=== PATIENT | female | born 1965 | race Two or more races ===

== ENCOUNTER 2016-09-09 01:56 | Emergency (ER) | payer MEDICAID ==
[~2016-09-09] VITALS: Ht 162.6 cm; Wt 108.9 kg
[2016-09-09 02:22] VITALS: BP 122/74
[2016-09-09 02:51] LABS: Urine Bilirubin Negative (Negative); Urine Color PINK (Yellow); Urine Glucose Normal (Normal); Urine Ketone Negative (Negative); Urine Mucus FEW (None Seen); Urine Nitrite Negative (Negative); Urine RBC 1675 /hpf (0 - 4); Urine Squamous Epithelial Cell MOD /hpf (<5)
[2016-09-09 02:52] LABS: Urine Blood 3+ /uL (Negative)
[2016-09-09] MEDS ORDERED: cefTRIAXone SOD 1,000 MG VL IM ONE (04:30)
== END 2016-09-09 05:16 | disposition home or self-care (01) ==
LOC: ER 01:59
DX: N39.0 Urinary tract infection, site not specified (principal)
CPT/HCPCS: 81001; 96372; 99283; J0696

== ENCOUNTER 2020-07-26 12:16 | Emergency (ER) | payer MEDICAID, OTHER ==
[~2020-07-26] VITALS: Ht 162.6 cm; Wt 108.9 kg
[2020-07-26 13:50] LABS: Basophils # (auto) 0 10 ^3/uL (0-0.2); Basophils % (auto) 0.6 % (0.0-2.0); Eosinophils # (auto) 0.1 10 ^3/uL (0-0.8); Eosinophils % (auto) 1.9 % (0.0-7.0); Hematocrit 39.5 % (36.0-46.0); Hemoglobin 13.3 g/dL (12.2-16.2); Lymphocytes # (auto) 1.3 10 ^3/uL (0.4-5.4); Lymphocytes % (auto) 17.3 % (10.0-50.0); Mean Corpuscular Hgb Conc. 33.7 g/dL (32.0-36.0); Mean Corpuscular Volume 83.1 fL (80.0-100.0); Monocytes # (auto) 0.5 10 ^3/uL (0-1.3); Monocytes % (auto) 6.1 % (0.0-12.0); Neutrophils # (auto) 5.7 10 ^3/uL (1.6-8.6); Neutrophils % (auto) 74.1 % (37.0-80.0); Red Blood Cells 4.75 10^6/uL (4.0-5.20); Red Cell Distribution Width 14.7 % (11.8-14.3); White Blood Cell 7.7 10^3/uL (4.4-10.8)
[2020-07-26 14:06] LABS: INR 1.02 (0.9-1.15); Partial Thromboplastin Time 25.9 sec (23.0-31.2)
[2020-07-26 14:07] LABS: Albumin 3.6 g/dL (3.4-5.0); Anion Gap 5 (5-15); Blood Urea Nitrogen 13 mg/dL (7-18); Calcium 8.5 mg/dL (8.5-10.1); Carbon Dioxide 26 mmol/L (21-32); Chloride 108 mmol/L (98-107); Glucose 108 mg/dL (74-106); Potassium 3.7 mmol/L (3.5-5.1); Sodium 139 mmol/L (136-145)
[2020-07-26 14:15] LABS: Alanine Aminotransferase 40 U/L (13-56); Alkaline Phosphatase 75 U/L (45-117); Aspartate Aminotransferase 27 U/L (15-37); BUN/Creatinine Ratio 15.9; GFR African American 93 mL/min; GFR Non-African American 77 mL/min; Total Protein 7.6 g/dL (6.4-8.2)
[2020-07-26] MEDS ORDERED: HYDROcodone-ACET 10/325MG TAB PO ONE (15:15)
[2020-07-26 16:33] VITALS: BP 142/77
== END 2020-07-26 17:36 | disposition home or self-care (01) ==
LOC: ER 12:16 → EDBD 12:16 → ER 17:36
DX: S83.92XA Sprain of unspecified site of left knee, initial encounter (principal); W01.0XXA Fall on same level from slipping, tripping and stumbling without subsequent striking against object, initial encounter; Y93.89 Activity, other specified; Y92.89 Other specified places as the place of occurrence of the external cause; Y99.8 Other external cause status
CPT/HCPCS: 36415; 71045; 72192; 73700; 80053; 84484; 85025; 85610; 85730; 93005

== ENCOUNTER 2023-11-30 00:45 | Emergency (ER) | payer OTHER ==
[~2023-11-30] VITALS: Ht 165.1 cm; Wt 104.4 kg
[2023-11-30] MEDS: ACETAMINOPHEN 325 MG TAB PO ONE (01:05)
[2023-11-30 01:28] LABS: Urine Bacteria FEW /hpf (None Seen); Urine Blood 1+ /uL (Negative); Urine Clarity Turbid (Clear); Urine Color Colorless (Yellow); Urine Protein, UAD TRACE (Negative); Urine Specific Gravity 1.011 (1.001-1.035); Urine Urobilinogen Normal (Negative); Urine WBC 595 /hpf (0 - 5); Urine WBC Clumps PRESENT /hpf (None Seen); Urine pH 6.5 (5.0-9.0)
[2023-11-30] MEDS: cefTRIAXone 2GM/50ML D5W 50 ML IV ONE (02:57)
[2023-11-30 03:06] LABS: Basophils # (auto) 0 10 ^3/uL (0-0.2); Basophils % (auto) 0.1 % (0.0-2.0); Eosinophils # (auto) 0 10 ^3/uL (0-0.8); Eosinophils % (auto) 0.1 % (0.0-7.0); Hematocrit 37.8 % (36.0-46.0); Hemoglobin 12.7 g/dL (12.2-16.2); Lymphocytes # (auto) 0.5 10 ^3/uL (0.4-5.4); Lymphocytes % (auto) 3.9 % (10.0-50.0); Mean Corpuscular Hemoglobin 27.9 pg (28.0-32.0); Mean Corpuscular Hgb Conc. 33.6 g/dL (32.0-36.0); Monocytes # (auto) 0.4 10 ^3/uL (0-1.3); Monocytes % (auto) 3.1 % (0.0-12.0); Neutrophils # (auto) 11.4 10 ^3/uL (1.6-8.6); Neutrophils % (auto) 92.8 % (37.0-80.0); Red Blood Cells 4.55 10^6/uL (4.0-5.20); Red Cell Distribution Width 15.1 % (11.8-14.3); White Blood Cell 12.3 10^3/uL (4.4-10.8)
[2023-11-30] MEDS: SODIUM CHLORIDE 0.9% 1,000 ML IV ONE (03:08)
[2023-11-30] MEDS: KETOROLAC TROMETH 30 MG/ML 1ML VIAL IV ONE (03:09)
[2023-11-30] MEDS: cefTRIAXone 1GM/50ML D5W 50 ML IV ONE ×2 (03:09→04:48)
[2023-11-30] MEDS: ONDANSETRON HCL 4 MG/2 ML VIAL IV ONE (03:09)
[2023-11-30 03:25] LABS: Alanine Aminotransferase 30 U/L (7-40); Albumin 4.3 g/dL (3.2-4.8); Alkaline Phosphatase 75 U/L (46-116); Anion Gap 10 (5-15); Aspartate Aminotransferase 21 U/L (13-40); BUN/Creatinine Ratio 13.9 (10.0-20.0); Blood Urea Nitrogen 11 mg/dL (9-23); Calcium 9.7 mg/dL (8.7-10.4); Carbon Dioxide 21 mmol/L (20-30); Chloride 107 mmol/L (98-107); Glucose 157 mg/dL (74-106); Potassium 3.1 mmol/L (3.5-5.1); Sodium 138 mmol/L (136-145)
[2023-11-30 03:26] LABS: Bilirubin, Total 1.8 mg/dL (0.2-1.0); Total Protein 7.4 g/dL (5.7-8.2)
[2023-11-30] MEDS ORDERED: IBUP-1455 PO (04:23)
[2023-11-30] MEDS ORDERED: ACET-1304 PO (04:23)
[2023-11-30] MEDS ORDERED: CEPH500T PO (04:23)
[2023-11-30] MEDS ORDERED: ZOFR4T PO (04:23)
[2023-11-30] MEDS: POTASSIUM CHL 20 Meq TABLET PO ONE (05:12)
[2023-11-30 05:31] VITALS: BP 167/116; PULSE 108; RESP 14; TEMP 98.4; O2SAT 97
== END 2023-11-30 05:34 | disposition home or self-care (01) ==
LOC: ER 00:45 → EDUNIT# 00:45 → EDBD 00:45 → ER 05:27
DX: N39.0 Urinary tract infection, site not specified (principal); Z90.49 Acquired absence of other specified parts of digestive tract
CPT/HCPCS: 36415; 80053; 81001; 83605; 85025; 87040; 96365; 96366; 96375; 99284; J0696; J1885; J2405; J7030